=== PATIENT | male | born 2000 | race African-American/Black ===

== ENCOUNTER 2023-08-21 18:06 | Emergency (ER) | payer SELFPAY ==
[~2023-08-21] VITALS: Ht 177.8 cm; Wt 91.0 kg
[2023-08-21] MEDS ORDERED: MORPHINE SULFATE 4 MG/ML CPJ (NOT FOR IM USE) IV STA (18:34)
[2023-08-21] MEDS ORDERED: ONDANSETRON HCL 4MG/2ML INJ IV STA (18:34)
[2023-08-21] MEDS ORDERED: ETOMIDATE 2MG/ML 10ML VIAL IV ONE ×2 (18:45→23:15)
[2023-08-21] MEDS ORDERED: SODIUM CHLORIDE 0.9% 1,000 ML IV ONE ×2 (18:45→21:15)
[2023-08-21 20:30] VITALS: O2SAT 100
[2023-08-21] MEDS ORDERED: ETOMIDATE 2MG/ML 10ML VIAL IV NR (20:30)
[2023-08-21] MEDS ORDERED: KETAMINE HCL 50 MG/ML 10ML IV ONE (20:45)
[2023-08-21] MEDS ORDERED: PROPOFOL 200MG/20ML VIAL IV ONE ×2 (21:15→22:30)
[2023-08-21] MEDS ORDERED: MIDAZOLAM HCL 2 MG/2 ML VIAL IV ONE ×2 (22:00)
[2023-08-21] MEDS: PROPOFOL 200MG/20ML VIAL IV ONE (22:30)
[2023-08-22 00:20] VITALS: BP 135/87; PULSE 95; RESP 14
== END 2023-08-22 00:42 | disposition home or self-care (01) ==
LOC: ER 18:06
DX: S43.015A Anterior dislocation of left humerus, initial encounter (principal); X58.XXXA Exposure to other specified factors, initial encounter; Y93.89 Activity, other specified; Y92.89 Other specified places as the place of occurrence of the external cause; Y99.8 Other external cause status
CPT/HCPCS: 73030; 23650; 96361; 96374; 96375; 99152; 99285; J3490 ×2; J2250; J2405; J2704; J2270; J7030; Z7610 ×4; A4565